=== PATIENT | male | born 1955 | race Caucasian/White ===

== ENCOUNTER → 2020-05-26 18:41 | Outpatient (ROUT) | payer MEDICARE, OTHER, SELFPAY ==
[2020-05-26 20:03] LABS: Add Manual Diff / Slide Review NO; Basophils Absolute Auto 100 /uL (0-100); Eosinophils Absolute Auto 200 /uL (0-450); Eosinophils Percent Auto 2.3 % (2-4); Hematocrit 42.6 % (41-53); Hemoglobin 14.4 g/dL (13.5-17.5); Lymphocytes Absolute Auto 2100 /uL (1100-4500); Lymphocytes Percent Auto 26.2 % (25-40); Mean Corpuscular HGB Conc 33.8 % (30-36); Mean Corpuscular Hemoglobin 31.5 PG (26-34); Mean Corpuscular Volume 93.1 fL (80-100); Monocytes Absolute Auto 500 /uL (0-900); Monocytes Percent Auto 5.9 % (3-14); Neutrophils Absolute Auto 5200 /uL (1500-7000); Neutrophils Percent Auto 64.6 % (50-75); Platelet Count 251 X10^3/uL (150-400); Red Blood Cell Count 4.58 X10^6/uL (4.5-5.9); Red Cell Distribution Width 13.6 % (11.6-14.8)
[2020-05-26 20:17] LABS: Alanine Aminotransferase 21 IU/L (<50); Albumin 4.2 g/dL (3.5-5.0); Albumin Globulin Ratio 1.5 (1.0-2.8); Alkaline Phosphatase 62 U/L (38-126); Aspartate Aminotransferase 27 IU/L (17-59); BUN Creatinine Ratio 16.7 (6-22); Bilirubin Total 0.5 mg/dL (0.2-1.3); Blood Urea Nitrogen 18 mg/dL (9-20); Calcium 9.2 mg/dL (8.4-10.2); Carbon Dioxide 28 mmol/L (22-32); Chloride 101 mmol/L (98-107); Cholesterol 219 mg/dL (140-199); Estimated Glomerular Filt Rate > 60.0 mL/min (>60); Globulin 2.8 g/dL (1.7-4.1); Glucose 104 mg/dL (80-110); HDL Cholesterol 105 mg/dL (40-60); HEMOLYSIS < 15 (0-50); LDL Cholesterol Calculated 94 mg/dL (<100); Potassium 4.2 mmol/L (3.4-5.1); Sodium 136 mmol/L (137-145); Triglycerides 98 mg/dL (35-150)
[2020-05-26 20:46] LABS: Prostate Specific Antigen 0.499 ng/mL (0.10-4.00)
== END ==
PROVIDERS: Visit Provider Internal Medicine
DX: Z00.00 Encounter for general adult medical examination without abnormal findings (principal); N40.1 Benign prostatic hyperplasia with lower urinary tract symptoms
CPT/HCPCS: 80053; 80061; 84153; 85025

== ENCOUNTER → 2020-11-06 09:15 | Outpatient (CLI) | payer MEDICARE, OTHER, SELFPAY ==
--- NOTE | 2020-11-06 | DI.US.S_ITS ---
PROCEDURE: US ABD AORTA ANEURYSM SCREEN INDICATIONS: ABDOMINAL AORTIC ANEURYSM SCREENING TECHNIQUE: Real time scanning was performed of the aorta and iliac arteries, with image documentation. COMPARISON: None. FINDINGS: Aorta: Proximal aortic diameter measures 2 cm. Mid-aorta measures 2 cm. Distal aortic diameter is 1.6 cm. Iliac arteries: Right common iliac artery measures 0.8 cm. Left common iliac artery measures 0.8 cm. IMPRESSION: Negative for aneurysm. Dictated by: Jamison Jackson M.D. on 11/06/2020 at 9:26 Approved by: Jamison Jackson M.D. on 11/06/2020 at 9:27
== END ==
PROVIDERS: PCP Internal Medicine; Referring Provider Internal Medicine; Visit Provider Internal Medicine
DX: Z13.6 Encounter for screening for cardiovascular disorders (principal)
CPT/HCPCS: 76706

== ENCOUNTER 2022-06-23 10:09 | Emergency (ER) | payer MEDICARE, OTHER, SELFPAY ==
[2022-06-23] VITALS (8 sets, daily range): BP systolic 98–135; BP diastolic 57–66; PULSE 80–88; RESP 18–21; TEMP 37.1; O2SAT 96–100; BMI 24.4
--- NOTE | 2022-06-23 10:18 | DI.CT.S_ITS ---
PROCEDURE: CT CERVICAL SPINE WO CON INDICATIONS: fall with neck pain TECHNIQUE: Noncontrast 3 mm thick sections acquired from the skull base to the T4 level. Sagittal and coronal reformats were then constructed. For radiation dose reduction, the following was used: automated exposure control, adjustment of mA and/or kV according to patient size. COMPARISON: [facility], CT, CT HEAD/BRAIN WO CON, 06/23/2022, 10:26. FINDINGS: Image quality: This examination is somewhat limited by quantum mottle artifact. Bones: No fractures or dislocations. Visualized superior ribs are intact. Focal degenerative change is seen involving the C1-C2 interface anteriorly. There is moderate disc space narrowing seen at C3-C4, with moderate to severe disc space narrowing seen at C4-C5 and C5-C6. Prior C6-C7 vertebral body fusion is seen. Soft tissues: Prevertebral soft tissues are normal in thickness. No paravertebral hematomas. No apical pneumothoraces. IMPRESSION: Negative for fracture. Prior fusion of C6-C7. Degenerative changes are seen, which are worst at C4-C5 and at C5-C6. Dictated by: Jamison Jackson M.D. on 06/23/2022 at 9:41 Approved by: Jamison Jackson M.D. on 06/23/2022 at 9:42
--- NOTE | 2022-06-23 10:18 | DI.CT.S_ITS ---
PROCEDURE: CT HEAD/BRAIN WO CON INDICATIONS: fall with head injury TECHNIQUE: Noncontrast 4.5 mm thick angled axial sections acquired from the foramen magnum to the vertex, with coronal and sagittal reformats. For radiation dose reduction, the following was used: automated exposure control, adjustment of mA and/or kV according to patient size. COMPARISON: None. FINDINGS: Image quality: Excellent. CSF spaces: Basal cisterns are patent. No extra-axial fluid collections. Ventricles are normal in size and shape. Brain: No midline shift. No intracranial masses or hemorrhage. Leary-white matter interface is normal. Skull and face: Calvarium and visualized facial bones are intact, without suspicious lesions. Small superficial hematoma, left forehead. Sinuses: Visualized sinuses and mastoids are clear. IMPRESSION: No evidence acute intracranial abnormality. Dictated by: Conrad Miranda M.D. on 06/23/2022 at 10:41 Approved by: Conrad Miranda M.D. on 06/23/2022 at 10:42
[2022-06-23 10:29] LABS: Add Manual Diff / Slide Review NO; Basophils Absolute Auto 100 /uL (0-100); Basophils Percent Auto 0.9 % (0-2); Eosinophils Absolute Auto 0 /uL (0-450); Eosinophils Percent Auto 0.1 % (2-4); Hemoglobin 14.1 g/dL (13.5-17.5); Lymphocytes Absolute Auto 500 /uL (1100-4500); Lymphocytes Percent Auto 8.6 % (25-40); Mean Corpuscular HGB Conc 33.5 % (30-36); Mean Corpuscular Hemoglobin 30.7 PG (26-34); Mean Corpuscular Volume 91.8 fL (80-100); Monocytes Absolute Auto 400 /uL (0-900); Monocytes Percent Auto 7.1 % (3-14); Neutrophils Absolute Auto 4900 /uL (1500-7000); Neutrophils Percent Auto 83.3 % (50-75); Platelet Count 216 X10^3/uL (150-400); Red Blood Cell Count 4.58 X10^6/uL (4.5-5.9); Red Cell Distribution Width 13.4 % (11.6-14.8); White Blood Cell Count 5.9 X10^3/uL (4.5-11.0)
[2022-06-23] MEDS: LIDOCAINE 2% INJ MDV 10ML 20 MG SUBCUT (10:36)
[2022-06-23] MEDS: SODIUM CHLORIDE 0.9% 1,000 ML 1000 ML IV (10:41)
[2022-06-23 10:42] LABS: Alanine Aminotransferase 23 IU/L (<50); Albumin 4.3 g/dL (3.5-5.0); Albumin Globulin Ratio 1.4 (1.0-2.8); Alkaline Phosphatase 66 U/L (38-126); Aspartate Aminotransferase 29 IU/L (17-59); BUN Creatinine Ratio 14.7 (6-22); Bilirubin Total 0.4 mg/dL (0.2-1.3); Blood Urea Nitrogen 16 mg/dL (9-20); Calcium 8.6 mg/dL (8.4-10.2); Carbon Dioxide 19 mmol/L (22-32); Chloride 97 mmol/L (98-107); Estimated Glomerular Filt Rate > 60 mL/min (>60); Globulin 3.1 g/dL (1.7-4.1); Glucose 136 mg/dL (80-110); HEMOLYSIS < 15 (0-50); Lipase 221 U/L (23-300); Sodium 129 mmol/L (137-145); Total Protein 7.4 g/dL (6.3-8.2)
--- NOTE | 2022-06-23 10:48 | ED.GENADULT ---
HPI - General Adult General Chief complaint: Syncope Stated complaint: Syncope, N/V/D Time Seen by Provider: 06/23/22 10:17 Source: patient and EMS Mode of arrival: EMS Limitations: no limitations History of Present Illness HPI narrative: 66-year-old male. Not on anticoagulation. Has had a couple days nausea vomiting diarrhea and influenza illness like symptoms. Last evening he got up to use the bathroom and fell. He did hit his head. He is unsure exactly what had happened the next thing he remembers he woke up in bed. He then fell again this morning. EMS was called. EMS found him to be orthostatic with the increase in his heart rate and drop in his blood pressure. He does have cuts to his head. He arrived in a cervical collar. He reports no facial pain. No dental pain. No back pain. No neck pain. No extremity pain. No abdominal pain. Related Data Allergies Allergy/AdvReac Type Severity Reaction Status Date / Time Sulfa (Sulfonamide Allergy Unknown Verified 01/11/22 18:59 Antibiotics) Review of Systems Constitutional Constitutional: Reports system reviewed and no additional complaints, except as documented Eyes Eyes: Reports system reviewed and no additional complaints, except as documented ENT Ears, Nose, Mouth, and Throat: Reports system reviewed and no additional complaints, except as documented Cardiovascular Cardiovascular: Reports system reviewed and no additional complaints, except as documented Respiratory Respiratory: Reports system reviewed and no additional complaints, except as documented Gastrointestinal Gastrointestinal: Reports system reviewed and no additional complaints, except as documented Musculoskeletal Musculoskeletal: Reports system reviewed and no additional complaints, except as documented Integumentary/Breasts Skin/Breast: Reports system reviewed and no additional complaints, except as documented Neurologic Neurologic: Reports system reviewed and no additional complaints, except as documented Hematologic/Lymphatic On Anticoagulants: No Allergic/Immunologic Allergic/Immunologic: Reports system reviewed and no additional complaints, except as documented Patient History Social History Smoking Status: Former smoker Smoking Status: Former smoker Exam Initial Vital Signs Initial Vital Signs: Vital Signs Temperature 98.8 F 06/23/22 10:25 Pulse Rate 84 06/23/22 10:25 Respiratory Rate 20 06/23/22 10:25 Blood Pressure 119/64 06/23/22 10:25 Pulse Oximetry 98 06/23/22 10:25 Oxygen Delivery Method 06/23/22 10:25 Const General: cooperative, comfortable and No ill appearing [facility] Head: normocephalic and laceration Ears: hearing grossly normal bilaterally Nose: other (Abrasion over bridge of nose) Mouth: oral mucosae normal Teeth and gingiva: dentition normal Eyes Other: Contusion above left eye Resp Effort & Inspection: normal respiratory effort Auscultation: clear to auscultation bilaterally Cardio Rate: regular rate Rhythm: regular rhythm GI Inspection: normal to inspection Back/Spine/Pelvis Thoracic/Lumbar Spine: No thoracic spinal tenderness and No lumbar spinal tenderness Skin Other: Patient with a 8 cm laceration on the top of the head. A 6 cm laceration in the right occipital portion. Has a contusion above his left eye. Abrasion over the bridge of his nose. Neuro General: patient alert, patient awake, patient oriented x3, moves all extremities and not confused Extrem General: normal to inspection and capillary refill normal Psych Appearance: grossly normal and well kempt Procedures Laceration Repair Laceration 1: Site: scalp Size (cm): 8 Description: linear Depth: simple, single layer Local Anesthetic: lidocaine 2% Amount of anesthesia used (mL): 5 Pre-repair: wound explored and deep structures intact Skin layer closed with: jonathon Laceration 2: Site: scalp Side (If applicable): right Size (cm): 6 Description: linear Depth: simple, single layer Local Anesthetic: lidocaine 2% Amount of anesthesia used (mL): 5 Pre-repair: wound explored and deep structures intact Skin layer closed with: jonathon Scores GCS [place] coma scale eye opening: Spontaneous [place] coma scale verbal response: Orientated [place] coma scale motor response: Obey commands [place] coma scale total score: 15 Course Orders Ordered: ED Orders 06/23/22 10:18 CT cervical spine wo con Stat CT head/brain wo con Stat 06/23/22 10:21 Complete Blood Count AUTO DIFF Stat Comprehensive Metabolic Panel Stat Lipase Stat Discontinued Medications Sodium Chloride (Normal Saline 0.9%) 1,000 mls @ 1,000 mls/hr IV BOLUS ONE Stop: 06/23/22 11:16 Last Admin: 06/23/22 10:41 Dose: 1,000 mls/hr Documented By: PHANI Lidocaine HCl (Lidocaine 2% Inj Mdv 20ml) 1 ml SUBCUT NOW ONE Stop: 06/23/22 10:27 Last Admin: 06/23/22 10:37 Dose: Not Given Documented By: PHANI Lidocaine HCl (Lidocaine 2% Inj Mdv 10ml) 20 mg SUBCUT NOW ONE Stop: 06/23/22 10:46 Last Admin: 06/23/22 10:36 Dose: 20 mg Documented By: PHANI Vital Signs Vital signs: Vital Signs - 8 hr 06/23/22 10:25 06/23/22 10:34 06/23/22 10:35 Temperature 98.8 F Pulse Rate 84 88 Respiratory Rate 20 21 Blood Pressure 119/64 119/64 Pulse Oximetry 98 97 Oxygen Delivery Method Room Air 06/23/22 10:35 06/23/22 11:00 06/23/22 11:01 Temperature Pulse Rate 85 83 Respiratory Rate 20 18 Blood Pressure 98/57 L Pulse Oximetry 97 96 Oxygen Delivery Method 06/23/22 11:01 06/23/22 11:30 06/23/22 11:31 Temperature Pulse Rate 82 80 Respiratory Rate 19 Blood Pressure 135/66 Pulse Oximetry 97 100 Oxygen Delivery Method 06/23/22 11:31 Temperature Pulse Rate 80 Respiratory Rate Blood Pressure Pulse Oximetry 98 Oxygen Delivery Method Medical Decision Making Lab Data Lab results reviewed: Yes I reviewed the patient's lab results. Result diagrams: 06/23/22 10:21 06/23/22 10:21 Labs: Lab Results 06/23/22 06/23/22 Range/Units 10:21 10:21 WBC 5.9 (4.5-11.0) X10^3/uL RBC 4.58 (4.5-5.9) X10^6/uL Hgb 14.1 (13.5-17.5) g/dL Hct 42.0 (41-53) % MCV 91.8 (80-100) fL MCH 30.7 (26-34) PG MCHC 33.5 (30-36) % RDW 13.4 (11.6-14.8) % Plt Count 216 (150-400) X10^3/uL Neut % (Auto) 83.3 H (50-75) % Lymph % (Auto) 8.6 L (25-40) % [place] % (Auto) 7.1 (3-14) % Eos % (Auto) 0.1 L (2-4) % Baso % (Auto) 0.9 (0-2) % Neut # (Auto) 4900 (0356-1010) /uL Lymph # (Auto) 500 L (5987-3302) /uL [place] # (Auto) 400 (0-900) /uL Eos # (Auto) 0 (0-450) /uL Baso # (Auto) 100 (0-100) /uL Sodium 129 L (137-145) mmol/L Potassium 4.0 (3.4-5.1) mmol/L Chloride 97 L (98-107) mmol/L Carbon Dioxide 19 L (22-32) mmol/L BUN 16 (9-20) mg/dL Creatinine 1.09 (0.66-1.25) mg/dL Estimated GFR > 60 (>60) mL/min BUN/Creatinine Ratio 14.7 (6-22) Glucose 136 H (80-110) mg/dL Calcium 8.6 (8.4-10.2) mg/dL Total Bilirubin 0.4 (0.2-1.3) mg/dL AST 29 (17-59) IU/L ALT 23 (<50) IU/L Alkaline Phosphatase 66 (38-126) U/L Total Protein 7.4 (6.3-8.2) g/dL Albumin 4.3 (3.5-5.0) g/dL Globulin 3.1 (1.7-4.1) g/dL Albumin/Globulin Ratio 1.4 (1.0-2.8) Lipase 221 (23-300) U/L Imaging Data CT scan - head: Radiologist's Impression: [address] [address] [address] Scan Report Signed Patient: Mitul Christopher MR#: [id number] : 1955 Acct:[id number] Age/Sex: 66 / M Date of Service: 06/23/22 Loc: ED Accession Number: [id number] ?? Procedure: CT head/brain wo con Ordering Provider: Geraldo Uribe D.O. PROCEDURE:? CT HEAD/BRAIN WO CON ? INDICATIONS:? fall with head injury ? TECHNIQUE:? Noncontrast 4.5 mm thick angled axial sections acquired from the foramen magnum to the vertex, with coronal and sagittal reformats.? For radiation dose reduction, the following was used:? automated exposure control, adjustment of mA and/or kV according to patient size.? ? COMPARISON:? None. ? FINDINGS:? Image quality:? Excellent.? ? CSF spaces:? Basal cisterns are patent.? No extra-axial fluid collections.? Ventricles are normal in size and shape.? ? Brain:? No midline shift.? No intracranial masses or hemorrhage.? Leary-white matter interface is normal.? ? Skull and face:? Calvarium and visualized facial bones are intact, without suspicious lesions.? Small superficial hematoma, left forehead.? ? Sinuses:? Visualized sinuses and mastoids are clear.? ? IMPRESSION:? No evidence acute intracranial abnormality. ? ? Dictated by: Conrad Miranda M.D. on 06/23/2022 at 10:41 ? ? Approved by: Conrad Miranda M.D. on 06/23/2022 at 10:42?? CT - cervical spine: Radiologist's Impression: [place] [address] CT Scan Report Signed Patient: Mitul Christopher MR#: [id number] : 1955 Acct:[id number] Age/Sex: 66 / M Date of Service: 06/23/22 Loc: ED Accession Number: [id number] ?? Procedure: CT cervical spine wo con Ordering Provider: Geraldo Uribe D.O. PROCEDURE:? CT CERVICAL SPINE WO CON ? INDICATIONS:? fall with neck pain ? TECHNIQUE:? Noncontrast 3 mm thick sections acquired from the skull base to the T4 level.? Sagittal and coronal reformats were then constructed.? For radiation dose reduction, the following was used:? automated exposure control, adjustment of mA and/or kV according to patient size.? ? COMPARISON:? [facility], CT, CT HEAD/BRAIN WO CON, 06/23/2022, 10:26. ? FINDINGS:? Image quality:? This examination is somewhat limited by quantum mottle artifact.? ? Bones:? No fractures or dislocations.? Visualized superior ribs are intact.? ? Focal degenerative change is seen involving the C1-C2 interface anteriorly.? There is moderate disc space narrowing seen at C3-C4, with moderate to severe disc space narrowing seen at C4-C5 and C5-C6.? Prior C6-C7 vertebral body fusion is seen. ? Soft tissues:? Prevertebral soft tissues are normal in thickness.? No paravertebral hematomas.? No apical pneumothoraces.? ? ? IMPRESSION:? Negative for fracture. ? Prior fusion of C6-C7. ? Degenerative changes are seen, which are worst at C4-C5 and at C5-C6. ? ? ? Dictated by: Jamison Jackson M.D. on 06/23/2022 at 9:41 ? ? Approved by: Jamison Jackson M.D. on 06/23/2022 at 9:42?? [facility] Narrative Medical decision making narrative: Head CT and cervical spine CT are unremarkable. The lacerations to his scalp were closed with jonathon. Steri-Strips were placed over the abrasion over his nose. Cervical collar was removed after the CT of his neck resulted as negative. Patient has no extremity injuries. No back pain. Ambulated around the emergency department. I suspect that his issues have been related to his influenza like illness and also the decrease in oral intake over the past couple days. He was given care instructions and return precautions. He expressed understanding and agreement. Discharge Plan Departure Patient Disposition: Home Clinical Impression: Influenza-like illness, Laceration of scalp, Contusion of eye, left, Abrasion of nose Activity Restrictions/Additional Instructions: That you recommend that you increase your fluid intake over the next couple days. The jonathon do need to be removed in 7-10 days. You can go to your primary doctor or the walk-in clinic or the emergency department for this. Until then you can shower like normal. Use soap and water but just pat the area dry. Return to the emergency department for any new or worsening symptoms. Referrals: Nir Fitzpatrick MD [Primary Care Provider] -
== END 2022-06-23 12:26 | disposition home or self-care (01) ==
PROVIDERS: Emergency Provider Emergency Medicine; PCP Internal Medicine
DX: S01.01XA Laceration without foreign body of scalp, initial encounter (principal); S00.12XA Contusion of left eyelid and periocular area, initial encounter; J11.1 Influenza due to unidentified influenza virus with other respiratory manifestations; R11.2 Nausea with vomiting, unspecified; W18.30XA Fall on same level, unspecified, initial encounter
CPT/HCPCS: 12005; 70450; 72125; 80053; 83690; 85025; 96360; 99284

== ENCOUNTER → 2022-09-27 09:50 | Outpatient (CLI) | payer MEDICARE, OTHER, SELFPAY ==
[2022-09-27 10:54] LABS: Hemoglobin A1C% w Est Avg Glu 5.4 % (4.0-6.0)
[2022-09-27 11:12] LABS: Alanine Aminotransferase 19 IU/L (<50); Albumin 4.1 g/dL (3.5-5.0); Albumin Globulin Ratio 1.6 (1.0-2.8); Alkaline Phosphatase 61 U/L (38-126); Aspartate Aminotransferase 22 IU/L (17-59); BUN Creatinine Ratio 16.3 (6-22); Bilirubin Total 0.6 mg/dL (0.2-1.3); Blood Urea Nitrogen 16 mg/dL (9-20); Calcium 8.5 mg/dL (8.4-10.2); Carbon Dioxide 25 mmol/L (22-32); Chloride 102 mmol/L (98-107); Cholesterol 208 mg/dL (140-199); Estimated Glomerular Filt Rate > 60 mL/min (>60); Globulin 2.6 g/dL (1.7-4.1); Glucose 89 mg/dL (80-110); HDL Cholesterol 103 mg/dL (40-60); HEMOLYSIS < 15 (0-50); LDL Cholesterol Calculated 94 mg/dL (<100); Potassium 4.2 mmol/L (3.4-5.1); Sodium 133 mmol/L (137-145); Total Protein 6.7 g/dL (6.3-8.2); Triglycerides 56 mg/dL (35-150)
[2022-09-27 11:42] LABS: Prostate Specific Antigen 0.475 ng/mL (0.10-4.00)
== END ==
PROVIDERS: PCP Internal Medicine; Referring Provider Internal Medicine; Visit Provider Internal Medicine
DX: R73.01 Impaired fasting glucose (principal); E78.2 Mixed hyperlipidemia; N40.1 Benign prostatic hyperplasia with lower urinary tract symptoms; F10.90 Alcohol use, unspecified, uncomplicated; N13.8 Other obstructive and reflux uropathy
CPT/HCPCS: 36415; 80053; 80061; 83036; 84153

== ENCOUNTER → 2023-09-29 10:52 | Outpatient (CLI) | payer MEDICARE, OTHER, SELFPAY ==
[2023-09-29 12:05] LABS: Aspartate Aminotransferase 24 IU/L (17-59); BUN Creatinine Ratio 10.2 (6-22); Blood Urea Nitrogen 10 mg/dL (9-20); Calcium 8.9 mg/dL (8.4-10.2); Carbon Dioxide 25 mmol/L (22-32); Chloride 105 mmol/L (98-107); Cholesterol 200 mg/dL (140-199); Estimated Glomerular Filt Rate > 60 mL/min (>60); Glucose 95 mg/dL (80-110); HDL Cholesterol 94 mg/dL (40-60); HEMOLYSIS < 15 (0-50); LDL Cholesterol Calculated 95 mg/dL (<100); Potassium 4.5 mmol/L (3.4-5.1); Sodium 135 mmol/L (137-145); Triglycerides 54 mg/dL (35-150)
[2023-09-29 12:07] LABS: Hemoglobin A1C% w Est Avg Glu 5.2 % (4.0-6.0)
[2023-09-29 12:32] LABS: Prostate Specific Antigen 0.492 ng/mL (0.10-4.00)
== END ==
LOC: LAB 10:53
PROVIDERS: PCP Internal Medicine; Referring Provider Internal Medicine; Visit Provider Internal Medicine
DX: R73.01 Impaired fasting glucose (principal); E78.2 Mixed hyperlipidemia; N40.1 Benign prostatic hyperplasia with lower urinary tract symptoms; N13.8 Other obstructive and reflux uropathy
CPT/HCPCS: 36415; 80048; 80061; 83036; 84153; 84450

== ENCOUNTER → 2024-11-15 14:23 | Outpatient (CLI) | payer MEDICARE, OTHER, SELFPAY ==
[2024-11-15 15:38] LABS: Hemoglobin A1C% w Est Avg Glu 4.9 % (4.0-6.0)
[2024-11-15 15:51] LABS: Aspartate Aminotransferase 29 IU/L (17-59); BUN Creatinine Ratio 14.3 (6-22); Blood Urea Nitrogen 14 mg/dL (9-20); Calcium 9.4 mg/dL (8.4-10.2); Carbon Dioxide 22 mmol/L (22-32); Chloride 100 mmol/L (98-107); Cholesterol 228 mg/dL (140-199); Estimated Glomerular Filt Rate > 60 mL/min (>60); Glucose 93 mg/dL (70-99); HDL Cholesterol 102 mg/dL (40-60); HEMOLYSIS < 15 (0-50); LDL Cholesterol Calculated 104 mg/dL (<100); Potassium 4.2 mmol/L (3.4-5.1); Sodium 132 mmol/L (137-145); Triglycerides 110 mg/dL (35-150)
== END ==
PROVIDERS: PCP Internal Medicine; Referring Provider Internal Medicine; Visit Provider Internal Medicine
DX: R73.01 Impaired fasting glucose (principal); E78.2 Mixed hyperlipidemia; N40.1 Benign prostatic hyperplasia with lower urinary tract symptoms; N13.8 Other obstructive and reflux uropathy
CPT/HCPCS: 36415; 80048; 80061; 83036; 84153; 84450